=== PATIENT | female | born 1960 | race Caucasian/White ===

== ENCOUNTER 2022-01-30 23:42 | Inpatient (IN) ==
[2022-01-30] MEDS ORDERED: *HR* Ticagrelor 90 MG TABLET PO ONE (23:55)
[2022-01-30] MEDS ORDERED: Ondansetron 4 MG/2 ML VIAL IVP ONE (23:58)
[2022-01-30] MEDS ORDERED: Morphine Sulfate 2 MG/ML SYRINGE IVP ONE (23:58)
[2022-01-31] MEDS ORDERED: *HR* Heparin 5,000 UNIT/ML VIAL SQ ONE
[2022-01-31] MEDS ORDERED: 0.9 % Sodium Chloride 1,000 ML ONE ×2 (00:08→00:09)
[2022-01-31] MEDS ORDERED: Iopamidol - 370 200 ML INFUS..BTL ONE ×2 (00:08→00:50)
[2022-01-31] MEDS ORDERED: Nitroglycerin 1,000 MCG/5 ML VIAL IV ONE (00:08)
[2022-01-31] MEDS ORDERED: Heparin 1,000 UNITS/500 mL 500 ML ONE (00:08)
[2022-01-31] MEDS ORDERED: *HR* Heparin 10,000 UNIT/10 ML VIAL ONE (00:08)
[2022-01-31] MEDS ORDERED: *HR* Heparin 5,000 UNIT/ML VIAL IVP PRN ×2 (00:09)
[2022-01-31] MEDS ORDERED: *HR* Heparin 5,000 UNIT/ML VIAL IVP ONE ×2 (00:09→00:30)
[2022-01-31 00:10] LABS: Basophils # 0.1 K/mcL (0.0-0.2); Basophils % 0.6 %; Eosinophils # 0.1 K/mcL (0.0-0.6); Eosinophils % 1.3 %; Hematocrit 46.1 % (35.3-44.9); Hemoglobin 15.6 g/dL (11.5-15.4); Immature Granulocytes % 0.6 % (0-4); Lymphocytes # 4.4 K/mcL (0.6-4.6); Lymphocytes % 46.5 %; Mean Corpuscular HGB Conc 33.8 g/dL (31.6-35.5); Mean Corpuscular Hemoglobin 30.3 pg (28.0-33.3); Mean Corpuscular Volume 89.5 fL (83.0-100.0); Mean Platelet Volume 10.7 fL (9.4-12.4); Monocytes # 0.8 K/mcL (0.0-1.3); Neutrophils # 4.1 K/mcL (1.6-8.9); Platelet Count 253 K/mcL (140-400); Red Blood Count 5.15 M/mcL (3.82-4.97); Red Cell Distribution Width 12.1 % (11.5-14.5); White Blood Count 9.5 K/mcL (4.3-11.1)
[2022-01-31 00:15] LABS: Prothrombin Time 10.9 Seconds (9.4-12.1)
[2022-01-31] MEDS ORDERED: Heparin 25,000UNIT/250ML 1/2NS 25,000 UNIT/250 ML IV.SOLN IVC SCH (00:15)
[2022-01-31] MEDS ORDERED: *HR* FentaNYL (PF) 100 MCG/2 ML VIAL ONE (00:20)
[2022-01-31] MEDS ORDERED: *HR* Midazolam HCl 2 MG/2 ML VIAL ONE (00:20)
[2022-01-31 00:27] LABS: Calcium 10.5 mg/dL (8.6-10.3); Potassium 3.6 mEq/L (3.5-5.1)
[2022-01-31 00:31] LABS: Troponin I 0.05 ng/mL (< 0.04)
[2022-01-31] MEDS ORDERED: Tirofiban 12.5 MG/250ML 12.5 MG/250 ML BAG ONE (00:41)
[2022-01-31] MEDS ORDERED: Protamine Sulfate 50 MG/5 ML VIAL IVP ONE (00:56)
[2022-01-31 02:36] LABS: Basophils % 0.3 %; Eosinophils # 0.1 K/mcL (0.0-0.6); Eosinophils % 0.6 %; Hematocrit 41.2 % (35.3-44.9); Immature Granulocytes % 0.5 % (0-4); Lymphocytes # 2.1 K/mcL (0.6-4.6); Lymphocytes % 15.9 %; Mean Corpuscular Hemoglobin 30.4 pg (28.0-33.3); Mean Platelet Volume 10.5 fL (9.4-12.4); Monocytes # 0.8 K/mcL (0.0-1.3); Monocytes % 6.1 %; Neutrophils # 10.1 K/mcL (1.6-8.9); Platelet Count 201 K/mcL (140-400); Red Blood Count 4.48 M/mcL (3.82-4.97); Red Cell Distribution Width 12.2 % (11.5-14.5); Segmented Neutrophils % 76.6 %; White Blood Count 13.2 K/mcL (4.3-11.1)
[2022-01-31 02:37] LABS: Hemoglobin 13.6 g/dL (11.5-15.4)
[2022-01-31 02:42] LABS: Heparin anti-factor XA UFH 0.08 IU/mL (0.30-0.70)
[2022-01-31 02:43] LABS: Prothrombin Time 11.6 Seconds (9.4-12.1)
[2022-01-31 02:55] LABS: Calcium 9.1 mg/dL (8.6-10.3)
[2022-01-31] MEDS: Aspirin 81 MG TAB.CHEW PO SCH (09:12)
[2022-01-31] MEDS: Metoprolol XL (24 HR) Succ 25 MG TAB.ER.24H PO SCH (09:12)
[2022-01-31] MEDS: *HR* Ticagrelor 90 MG TABLET PO SCH ×2 (09:13→21:59)
[2022-01-31] MEDS: BuPROPion XL (24 HR) 150 MG TABLET PO SCH (14:15)
[2022-01-31] MEDS: *HR* Heparin 5,000 UNIT/ML VIAL SQ SCH (17:53)
[2022-02-01 02:48] LABS: Basophils % 0.4 %; Eosinophils # 0.1 K/mcL (0.0-0.6); Eosinophils % 1.1 %; Hematocrit 39.2 % (35.3-44.9); Immature Granulocytes % 0.3 % (0-4); Lymphocytes # 2.3 K/mcL (0.6-4.6); Lymphocytes % 24.6 %; Mean Corpuscular HGB Conc 33.2 g/dL (31.6-35.5); Mean Corpuscular Volume 90.5 fL (83.0-100.0); Mean Platelet Volume 11.1 fL (9.4-12.4); Monocytes # 0.9 K/mcL (0.0-1.3); Monocytes % 9.5 %; Neutrophils # 5.9 K/mcL (1.6-8.9); Platelet Count 174 K/mcL (140-400); Red Blood Count 4.33 M/mcL (3.82-4.97); Red Cell Distribution Width 12.1 % (11.5-14.5); Segmented Neutrophils % 64.1 %; White Blood Count 9.3 K/mcL (4.3-11.1)
[2022-02-01 03:11] LABS: Calcium 8.7 mg/dL (8.6-10.3); Chol/HDL Ratio 4.3 (0-4.9); Potassium 3.6 mEq/L (3.5-5.1)
[2022-02-01 04:12] LABS: Estimated Average Glucose 103 mg/dl; Hemoglobin A1C 5.2 %
[2022-02-01] MEDS: *HR* Heparin 5,000 UNIT/ML VIAL SQ SCH ×2 (06:43→17:06)
[2022-02-01] MEDS: *HR* Ticagrelor 90 MG TABLET PO SCH ×2 (09:07→21:02)
[2022-02-01] MEDS: Metoprolol XL (24 HR) Succ 25 MG TAB.ER.24H PO SCH (09:07)
[2022-02-01] MEDS: BuPROPion XL (24 HR) 150 MG TABLET PO SCH (09:08)
[2022-02-01] MEDS: Aspirin 81 MG TAB.CHEW PO SCH (09:08)
[2022-02-01 15:44] VITALS: TEMP 98.1
[2022-02-01 21:08] VITALS: BP 117/52; O2SAT 96
[2022-02-01 21:16] VITALS: PULSE 76
[2022-02-02] MEDS ORDERED: Metoprolol XL (24 HR) Succ 50 MG TAB.ER.24H PO SCH (09:00)
== END 2022-02-01 23:59 | disposition other institution (70) | DRG 247 ==
LOC: EMEROOARM 23:42 → 2NNU 01-31 00:15
PROVIDERS: ADMIT Internal Medicine Interventional Cardiology; ATTEND Internal Medicine Interventional Cardiology